=== PATIENT | male | born 2000 | race Caucasian/White ===

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

== ENCOUNTER 2023-11-18 19:25 | Emergency (ER) | payer OTHER ==
--- NOTE | 2023-11-18 20:07 | ER ---
Nurse's Notes [facility] Name: Delonte Anderson Age: 23 yrs Sex: Male : 2000 Arrival Date: 11/18/2023 Time: 19:25 Bed IW2 Private MD: Diagnosis: Unspecified contact dermatitis, unspecified cause;Allergic contact dermatitis due to plants, except food-POISON MARTIN Presentation: 11/17 19:43 Chief complaint: Patient states: Poison martin on bilateral legs back and abdomen. cm10 Coronavirus screen: Client denies travel out of the [place] in the last 14 days. At this time, the client does not indicate any symptoms associated with coronavirus-19. Ebola Screen: Patient denies travel to an Ebola-affected area in the 21 days before illness onset. No symptoms or risks identified at this time. Initial Sepsis Screen: Does the patient meet any 2 criteria? HR > 90 bpm. Does the patient have a suspected source of infection? No. Patient's initial sepsis screen is negative. Risk Assessment: Do you want to hurt yourself or someone else? Patient reports no desire to harm self or others. Onset of symptoms was November 18, 2023. 19:43 Method Of Arrival: Ambulatory cm10 19:43 Acuity: JOHNATHAN 4 cm10 Triage Assessment: 19:44 General: Appears in no apparent distress. uncomfortable, Behavior is calm, cooperative. cm10 Pain: Complains of pain in right leg and left leg. Neuro: No deficits noted. Level of Consciousness is awake, alert, obeys commands, Oriented to person, place, time, situation, Appropriate for age. Derm: Rash noted that is itchy, red. Historical: - Allergies: 19:44 No Known Allergies; cm10 - Home Meds: 19:44 None [Active]; cm10 - PMHx: 19:44 None; cm10 - Immunization history:: Adult Immunizations up to date. - Infectious Disease History:: Denies. - Social history:: Smoking status: Reported history of juuling and/or vaping. - Family history:: not pertinent. Screenin:45 [facility] ED Fall Risk Assessment (Adult) History of falling in the last 3 months, cm10 including since admission No falls in past 3 months (0 pts) Confusion or Disorientation No (0 pts) Intoxicated or Sedated No (0 pts) Impaired Gait No (0 pts) Mobility Assist Device Used No (0 pt) Altered Elimination No (0 pt) Score/Fall Risk Level 0 - 2 = Low Risk Oriented to surroundings, Maintained a safe environment, Hourly rounding (assess needs \T\ fall precautionary measures) done. Abuse screen: Denies threats or abuse. Denies injuries from another. Nutritional screening: No deficits noted. Tuberculosis screening: No symptoms or risk factors identified. Assessment: 20:24 General: Appears uncomfortable, Behavior is calm, cooperative. Pain: Complains of pain jb4 in left leg and right leg. Derm: Rash noted that is papular, urticaria, on right arm and left arm and left leg and right leg. Vital Signs: 19:43 BP 123 / 58; Pulse 98; Resp 18; Temp 97.3; Pulse Ox 98% ; Weight 102.06 kg; Height 5 cm10 ft. 11 in. ; Pain 8/10; 20:25 Pulse 62; Resp 16; Pulse Ox 97% on R/A; jb4 19:43 Body Mass Index 31.38 (102.06 kg, 180.34 cm) cm10 19:43 Pain Scale: Adult cm10 ED Course: 19:27 Patient arrived in ED. rg4 19:30 French Newell MD is Attending Physician. [facility] 19:44 Triage completed. cm10 19:45 Arm band placed on Patient placed in waiting room. cm10 19:45 Patient has correct armband on for positive identification. Provided Education on: ER cm10 process and procedures.. Cardiac monitoring not applicable on this patient. 19:46 No provider procedures requiring assistance completed. Patient did not have IV access cm10 during this emergency room visit. Administered Medications: 20:23 Drug: Dexamethasone IM 10 mg IM once Route: IM; Site: left deltoid; jb4 20:24 Drug: Famotidine PO 40 mg PO once Route: PO; jb4 20:24 Drug: diphenhydrAMINE PO 50 mg PO once Route: PO; jb4 Medication: 19:45 VIS not applicable for this client. cm10 Outcome: 20:06 Discharge ordered by . [facility] 20:26 Discharged to home ambulatory, jb4 20:26 Condition: stable 20:26 Discharge instructions given to patient, Instructed on discharge instructions, follow up and referral plans. medication usage, Demonstrated understanding of instructions, follow-up care, medications, Prescriptions given X 3, 20:26 Patient left the ED. jb4 Signatures: French Newell MD MD cha Garcia, Rubi rg4 Wilberto Lopez RN RN jb4 Sahara Patino RN RN cm10 Corrections: (The following items were deleted from the chart) 19:44 19:44 PMHx: Unable to Obtain; cm10 cm10
--- NOTE | 2023-11-18 20:07 | EDPHYS ---
Physician Documentation [facility] Name: Delonte Anderson Age: 23 yrs Sex: Male : 2000 Arrival Date: 11/18/2023 Time: 19:25 Bed IW2 Private MD: ED Physician French Newell HPI: 11/17 19:59 This 23 yrs old Male presents to ER via Ambulatory with complaints of Poison js Martin. 19:59 The patient's rash thought to be caused by Contact allergy. The rash is located on the js body diffusely. The rash can be described as erythematous, raised. Onset: The symptoms/episode began/occurred 5 day(s) ago. Associated signs and symptoms: Pertinent positives: burning sensation, Pertinent negatives: swelling of lips, swelling of throat, swelling of tongue. Severity of symptoms: At their worst the symptoms were moderate in the emergency department the symptoms are worse mildly. Treatment given at home: Benadryl. The patient has experienced similar episodes in the past, a few times. Historical: - Allergies: 19:44 No Known Allergies; cm10 - Home Meds: 19:44 None [Active]; cm10 - PMHx: 19:44 None; cm10 - Immunization history:: Adult Immunizations up to date. - Infectious Disease History:: Denies. - Social history:: Smoking status: Reported history of juuling and/or vaping. - Family history:: not pertinent. ROS: 19:59 Constitutional: Negative for fever, chills, and weight loss, Eyes: Negative for injury, js pain, redness, and discharge, ENT: Negative for injury, pain, and discharge, Neck: Negative for injury, pain, and swelling, Cardiovascular: Negative for chest pain, palpitations, and edema, Respiratory: Negative for shortness of breath, cough, wheezing, and pleuritic chest pain, Abdomen/GI: Negative for abdominal pain, nausea, vomiting, diarrhea, and constipation, Back: Negative for injury and pain, : Negative for injury, bleeding, discharge, and swelling, MS/Extremity: Negative for injury and deformity, Neuro: Negative for headache, weakness, numbness, tingling, and seizure, Psych: Negative for depression, anxiety, suicide ideation, homicidal ideation, and hallucinations, Allergy/Immunology: Negative for hives, rash, and allergies, Endocrine: Negative for neck swelling, polydipsia, polyuria, polyphagia, and marked weight changes, Hematologic/Lymphatic: Negative for swollen nodes, abnormal bleeding, and unusual bruising, 19:59 Skin: Positive for erythema, rash, diffusely, Exam: 19:59 Constitutional: This is a well developed, well nourished patient who is awake, alert, js and in no acute distress. Head/Face: Normocephalic, atraumatic. Eyes: Pupils equal round and reactive to light, extra-ocular motions intact. Lids and lashes normal. Conjunctiva and sclera are non-icteric and not injected. Cornea within normal limits. Periorbital areas with no swelling, redness, or edema. ENT: Nares patent. No nasal discharge, no septal abnormalities noted. Tympanic membranes are normal and external auditory canals are clear. Oropharynx with no redness, swelling, or masses, exudates, or evidence of obstruction, uvula midline. Mucous membranes moist. Neck: Trachea midline, no thyromegaly or masses palpated, and no cervical lymphadenopathy. Supple, full range of motion without nuchal rigidity, or vertebral point tenderness. No Meningismus. Chest/axilla: Normal chest wall appearance and motion. Nontender with no deformity. No lesions are appreciated. Cardiovascular: Regular rate and rhythm with a normal S1 and S2. No gallops, murmurs, or rubs. Normal PMI, no JVD. No pulse deficits. Respiratory: Lungs have equal breath sounds bilaterally, clear to auscultation and percussion. No rales, rhonchi or wheezes noted. No increased work of breathing, no retractions or nasal flaring. Abdomen/GI: Soft, non-tender, with normal bowel sounds. No distension or tympany. No guarding or rebound. No evidence of tenderness throughout. Back: No spinal tenderness. No costovertebral tenderness. Full range of motion. Male : Normal genitalia with no discharge or lesions. MS/ Extremity: Pulses equal, no cyanosis. Neurovascular intact. Full, normal range of motion. Neuro: Awake and alert, GCS 15, oriented to person, place, time, and situation. Cranial nerves II-XII grossly intact. Motor strength 5/5 in all extremities. Sensory grossly intact. Cerebellar exam normal. Normal gait. Psych: Awake, alert, with orientation to person, place and time. Behavior, mood, and affect are within normal limits. 19:59 Skin: Appearance: Color: normal in color, Temperature: normal temperature, Moisture: normal moisture, petechiae, not noted, ecchymosis, not noted, flushing, not noted, diaphoresis is not appreciated, contact dermatitis, Vital Signs: 19:43 BP 123 / 58; Pulse 98; Resp 18; Temp 97.3; Pulse Ox 98% ; Weight 102.06 kg; Height 5 cm10 ft. 11 in. ; Pain 8/10; 20:25 Pulse 62; Resp 16; Pulse Ox 97% on R/A; jb4 19:43 Body Mass Index 31.38 (102.06 kg, 180.34 cm) cm10 19:43 Pain Scale: Adult cm10 MDM: 19:30 Patient medically screened. js 20:01 Differential diagnosis: impetigo, varicella, allergic reaction, parasite infection. js Data reviewed: vital signs, nurses notes. Consideration of Admission/Observation Escalation of care including admission/observation considered. I considered the following discharge prescriptions or medication management in the emergency department Medications were administered in the Emergency Department. See MAR. Test considered but Not performed: Labs: NO LABS. Care significantly affected by the following chronic conditions: NONE. Counseling: I had a detailed discussion with the patient and/or guardian regarding the historical points, exam findings, and any diagnostic results supporting the discharge/admit diagnosis, the need for outpatient follow up, for definitive care, a family practitioner. Administered Medications: 20:23 Drug: Dexamethasone IM 10 mg IM once Route: IM; Site: left deltoid; jb4 20:24 Drug: Famotidine PO 40 mg PO once Route: PO; jb4 20:24 Drug: diphenhydrAMINE PO 50 mg PO once Route: PO; jb4 Disposition Summary: 11/18/23 20:06 Discharge Ordered Notes: Location: Home js Problem: new js Symptoms: have improved js Condition: Stable js Diagnosis - Unspecified contact dermatitis, unspecified cause js - Allergic contact dermatitis due to plants, except food - POISON MARTIN js Followup: js - With: Private Physician - When: 2 - 3 days - Reason: Recheck today's complaints, Continuance of care, Re-evaluation by your physician Discharge Instructions: - Discharge Summary Sheet js - Contact Dermatitis js - Poison Martin Dermatitis js - Poison [place] Dermatitis js - Rash, Adult js - Rash, Adult, [id number] js - Poison Martin Dermatitis, [id number] [facility] Forms: - Medication Reconciliation Form js - Antibiotic Education js - Prescription Opioid Use js - Patient Portal Instructions js - Leadership Thank You Letter [facility] Prescriptions: - Pepcid 40 mg Oral tablet - take 1 tablet ORAL route every 12 hours for 7 days; 14 tablet; Refills: 0, [facility] Product Selection Permitted - dexamethasone 4 mg Oral tablet - take 1 tablet ORAL route once; 6 tablet; Refills: 0, Product Selection Permittedcha - Hydroxyzine HCl 50 mg Oral tablet - take 1 tablet ORAL route every 6 hours As needed; 28 tablet; Refills: 0, [facility] Product Selection Permitted Signatures: French Newell MD MD cha Bryson, James RN RN jb4 Sahara Patino RN RN cm10 Corrections: (The following items were deleted from the chart) 19:44 19:44 PMHx: Unable to Obtain; cm10 cm10
[2023-11-18] MEDS ORDERED: dexAMETHasone 10 MG/ML VIAL ONE (20:15)
[2023-11-18] MEDS ORDERED: DIPHENHYDRAMINE 25 MG TAB/CAP ONE (20:16)
[2023-11-18] MEDS ORDERED: FAMOTIDINE 20 MG TAB ONE (20:16)
[2023-11-19 00:11] VITALS: BP 123/58; TEMP 97.3
[2023-11-19 00:12] VITALS: O2SAT 97
== END 2023-11-18 20:26 | disposition home or self-care (01) ==
LOC: ER 19:25
DX: L23.7 Allergic contact dermatitis due to plants, except food (principal)
CPT/HCPCS: 96372; 99284; J1100